=== PATIENT | female | born 1945 | race Caucasian/White ===

== ENCOUNTER 2019-02-15 18:42 | Emergency (ER) | payer MEDICARE, OTHER ==
--- NOTE | 2019-02-15 19:44 | ED Physician Documentation ---
General Adult - HISTORIAN Historian: patient - HPI Stated Complaint: right eye problem Chief Complaint: General Adult Onset: hours Timing: still present Severity: mild Further Comments: yes (Pt is a 74 yo female with a bloody R eye. Pt does not recall injuring her eye. It is not painful. Vision is unaffected. Pt presents with elevated bp 182/85. Pt takes Losartan 50 mg po once daily for HTN. Pt has been under stress today. Her cat and there have been other stressors.) - ROS CONST: no problems EYES/ENT: other ("bloody right eye") CVS/RESP: none GI/: none MS/SKIN/LYMPH: none - PAST HX Past History: other (HTN, ) Surgeries/Procedures: other (catarac, ortho) Allergies/Adverse Reactions: Allergies Allergy/AdvReac Type Severity Reaction Status Date / Time bacitracin Allergy Unknown Verified 02/15/19 19:08 [From Neosporin ([id number])] bacitracin zinc Allergy Unknown Verified 02/15/19 19:08 [From Neosporin ([id number])] neomycin sulfate Allergy Unknown Verified 02/15/19 19:08 [From Neosporin ([id number])] polymyxin B Allergy Unknown Verified 02/15/19 19:08 [From Neosporin ([id number])] acetaminophen Allergy Verified 02/15/19 19:08 [From Darvocet-N] propoxyphene Allergy Verified 02/15/19 19:08 [From Darvocet-N] dermaplast Allergy Unknown Uncoded 02/15/19 19:08 avenox AdvReac Severe depression Uncoded 02/15/19 19:08 Home Medications: Ambulatory Orders Medication Instructions Recorded Gabapentin [Neurontin] 600 mg PO HS 02/15/19 Lansoprazole [Prevacid] 30 mg PO DAILY 02/15/19 Losartan Potassium [Cozaar] 50 mg PO DAILY 02/15/19 Melatonin [Melatin] 3 mg PO HS 02/15/19 Mirtazapine [Remeron] 15 mg PO HS 02/15/19 Quetiapine Fumarate [Seroquel] 25 mg PO HS 02/15/19 Tramadol HCl [Ultram] 50 mg PO TID 02/15/19 - SOCIAL HX Smoking History: non-smoker - FAMILY HX Family History: No - VITAL SIGNS Vital Signs: Vital Signs Temp Pulse Resp BP Pulse Ox 98.5 F 71 18 182/85 99 02/15/19 18:45 02/15/19 18:45 02/15/19 18:45 02/15/19 18:45 02/15/19 18:45 - REVIEWED ASSESSMENTS Nursing Assessment Reviewed: Yes Vitals Reviewed: Yes Progress - Progress Progress: Change blood pressure regimen from Losartan 50 mg once daily to Losartan 50 every 12 hours. Keep track of your blood pressure readings and follow up with your primary provider to make sure your blood pressure medication regimen is working well or if other changes need to be made. Pt reassured that subconjunctival hemorrhage is benign. General Adult Physical Exam - PHYSICAL EXAM GENERAL APPEARANCE: mild distress EENT: other (subconjunctival hemorrhage R eye; no change in vision, no pain) NECK: normal inspection, supple RESPIRATORY: no resp distress, chest non-tender, breath sounds normal CVS: reg rate & rhythm, heart sounds normal ABDOMEN: soft, no organomegaly BACK: normal inspection, no CVA tenderness SKIN: warm/dry, normal color EXTREMITIES: non-tender, normal range of motion, no evidence of injury, no edema NEURO: oriented X3, motor nml, sensation nml Discharge Clincal Impression: HTN Subconjunctival bleed Qualifiers: Laterality: right Qualified Code(s): H11.31 - Conjunctival hemorrhage, right eye Referrals: Idalia Canales MD [Primary Care Provider] - Condition: Stable Disposition: 01 HOME, SELF-CARE Decision to Admit: NO Decision Time: 19:45
[2019-02-15 19:51] VITALS: BP 178/95
== END 2019-02-15 19:52 | disposition home or self-care (01) ==
LOC: ED 18:42
DX: H11.31 Conjunctival hemorrhage, right eye (principal); I10 Essential (primary) hypertension